=== PATIENT | female | born 1980 | race Caucasian/White ===

== ENCOUNTER 2023-12-27 01:49 | Day surgery (SDC) | payer BC, SELFPAY ==
[2023-12-17 09:00] VITALS: BMI 37.4
--- NOTE | 2023-12-17 09:05 | PC.NURSE ---
Report to the Outpatient Waiting Room, entrance under the green pavilion located off [facility], at time 1330 on date 12/27/23. Planned Procedure Time: 1530. Time changes happen often and if your time is changed the preop area will call you the afternoon before. - You and your visitor will be asked to self-screen and do not enter if you have any COVID symptoms. - A mask is optional within the hospital at this time. Patients may have clear liquids (water, carbonated beverages, clear teas, apple juice) until 3 hours prior to surgery with a maximum of 20 ounces. - No food from midnight until time of surgery Take the following medications with a SIP of water the morning of surgery: LEVOTHYROXINE DO NOT STOP ANY OF YOUR OTHER PRESCRIPTION MEDICATIONS PRIOR TO SURGERY ?EXCEPT THE FOLLOWING Medications to discontinue per physician: N/A Date to take last dose: N/A Please no make-up, nail malawian, hairspray, perfume, deodorant, or body powder the day of surgery. No jewelry (including any body piercings) or valuables the day of surgery, leave them at home. Please take a shower or bath the night before, or the morning of, surgery with an antibacterial soap. Wear comfortable, loose fitting clothing. - Jewelry must be removed prior to entering the operating room. Rings and piercings that are not removed may be cut off. - The hospital will not accept responsibility for valuables. - Please leave all valuables, including medications, at home the day of surgery. If you are going home after surgery, a licensed experienced truck driver must drive you home. - NO public transportation without another adult if you receive anesthesia. - We recommend that an adult stay with you for 24 hours following discharge. - We also recommend that you do not drive, make important decision, drink alcoholic beverages, or take any drugs that were not prescribed by your health care provider for at least 24 hours after your discharge time. Follow any additional instructions given to you from your surgeon. If you or anyone in your household have experienced Covid symptoms in the past week, please notify your surgeon or the nurse liaison at the phone number below for possible testing. Telephone instructions given to PT - RAFAEL GRAY and asked if any additional questions and then verbalized understanding. Patient advised to call surgeon office or pre surgery nurse liaison [phone] if any additional questions.
--- NOTE | 2023-12-27 09:21 | WPDHPUPDATE1 ---
History and Physical Update Update Date/Time: 12/27/23 09:21 History and Physical has been reviewed, including an updated exam of the patient. There are NO changes in the patient's condition. Risks, benefits, and alternatives have been discussed and questions answered. Patient agrees to proceed with procedure.
--- NOTE | 2023-12-27 09:21 | PM.HPGS ---
History of Present Illness History of Present Illness Consent: Risks, benefits, and alternatives have been discussed and questions answered. Patient agrees to proceed with procedure. Chief complaint: Menorrhagia Narrative: Bea Avitia is a 43 year old female with the onset of continues vaginal bleeding in August of 2023. The patient stopped her cyclic progesterone in June of 2023. In addition the patient stopped her Liothyronine also in June of 2023. The patient had blood work done showing a low free T3 and elevated TSH and was otherwise normal. It was recommended to undergo D&C hysteroscopy. Risks of infection, bleeding, perforation, and possible pathology are discussed. Patient voiced understanding and agrees to proceed. Review of Systems Review of Systems: not repeated day of surgery; patient states no changes in status PMFSH Past Medical History Medical History (Updated 12/27/23 @ 09:27 by Claudia Ozuna MD) Hypothyroid Surgical History Surgical History (Updated 12/27/23 @ 09:25 by Claudia Ozuna MD) History of section, low transverse x2 History of D&C 2015 spontaneous Family History Family History (Updated 12/27/23 @ 09:25 by Claudia Ozuna MD) Mother Endometrial carcinoma Social History Social History Years smoked: 20 Smoking status: Current every day smoker Tobacco type: cigarettes Alcohol intake: current Alcohol use details: VERY RARE Substance use: never Substance use type: does not use Living arrangements: with family Spiritual care concerns: No Meds Home Medications and Allergies Home Medications Medication Instructions Recorded Confirmed Type dupilumab 300 mg/2 mL subcutaneous 300 mg subcut WEEKLY 12/17/23 12/17/23 History syringe (Dupixent) levothyroxine 125 mcg tablet 125 mcg PO DAILY 12/17/23 12/17/23 History Allergies Allergy/AdvReac Type Severity Reaction Status Date / Time No Known Allergies Allergy Unverified 12/17/23 08:59 Exam Const: General: obese (BMI of 36) Orientation/consciousness: patient oriented x3 Resp: Effort & Inspection: normal respiratory effort : External Female Exam: normal external appearance Speculum Exam - Vagina: normal appearance of the vagina and normal vaginal discharge Speculum Exam - Cervix: normal appearance of the cervix Bimanual exam- vagina & uterus: uterine size normal and consistency normal Bimanual Exam- Adnexa, other: normal adnexae and No adnexal tenderness Neuro: General: patient oriented x3 Assessment and Plan Assessment and plan (1) Menorrhagia: Code(s): N92.0 - Excessive and frequent menstruation with regular cycle Status: Acute Assessment and Plan: plan to proceed with D&C hysteroscopy
[2023-12-27 12:56] VITALS: BP 136/75; PULSE 83; RESP 20; TEMP 36.9; O2SAT 97
[2023-12-27] MEDS: ACETAMINOPHEN 500 MG TABLET 1000 MG PO (13:27)
--- NOTE | 2023-12-27 13:29 | WPDANESEPPF ---
Anes - Initial Pre Proc Eval Procedure: Operation Date: 12/27/23 15:30 Proposed Procedures p Hysteroscopy Dilation and Curettage - Claudia Ozuna MD Date/Time: 12/27/23 13:29 Surgeon: Claudia Ozuna MD Pre Op Diagnosis: Menorrhagia Patient Data Age: 43 Gender: F Height: 1.65 m Weight: 102.1 kg Allergies Allergy/AdvReac Type Severity Reaction Status Date / Time No Known Allergies Allergy Unverified 12/27/23 13:25 Home Medications Medication Instructions Recorded Confirmed Type dupilumab 300 mg/2 mL subcutaneous 300 mg subcut WEEKLY 12/17/23 12/27/23 History syringe (Dupixent) levothyroxine 125 mcg tablet 125 mcg PO DAILY 12/17/23 12/27/23 History Patient hx anesthesia problems: none Family hx anesthesia problems: none Results Review: All pre-operative results and documents have been reviewed as part of the pre-operative evaluation. [facility] Past Medical History Medical History (Updated 12/27/23 @ 13:30 by Silvano Monge MD) Eczema Hypothyroid Obesity Surgical History Surgical History History of section, low transverse x2 History of D&C 2015 spontaneous Family History Family History Mother Endometrial carcinoma Social History Social History Years smoked: 20 Smoking status: Current every day smoker Tobacco type: cigarettes Alcohol intake: current Alcohol use details: VERY RARE Substance use: never Substance use type: does not use Living arrangements: with family Spiritual care concerns: No Anes - Eval Final PreProcedure Day of Procedure 12/27/23 13:29 Patient weight: obese Heart: regular rate and rhythm Lungs: clear to auscultation Airway: Mallampati scale class II Neurological: alert and oriented Last oral intake: >/= 8 hours ASA classification: III Emergent: no Anesthetic plan: proceed Anesthesia type and monitoring: general GIVS and standard monitoring Results Review: All pre-operative results and documents have been reviewed as part of the pre-operative evaluation. Informed Consent: The patient's anesthetic plan and its attendant risks and benefits were discussed with the patient/family/POA. Questions were solicited and answers provided to the satisfaction of the patient/family/POA.
[2023-12-27] MEDS: LACTATED RINGERS 1,000 ML 30 ML IV CONT ×2 (13:40→14:50)
[2023-12-27] MEDS: KETOROLAC 30 MG/ML VIAL (*BKC) IV PUSH (14:17)
[2023-12-27 14:33] VITALS: BP 130/92; PULSE 97; RESP 16; O2SAT 93
--- NOTE | 2023-12-27 14:33 | W.PM.PROC2 ---
Procedure Note - Detailed Date of Procedure 12/27/23 Pre-op Diagnosis Menorrhagia Post-op Diagnosis Same Procedure Performed D&C hysteroscopy Surgeon Claudia Ozuna MD Anesthesia MAC Findings uterus sounds to 10cm and appears grossly normal Description of Procedure The patient is taken to the operating room and placed under anesthesia in the dorsal lithotomy position. She was prepped and draped in usual sterile fashion. [place] speculum was placed in the vagina and the cervix is grasped on the anterior lip with a tenaculum. The uterus is sounded to 10cm. The hysteroscope was placed and with no abnormalities noted the hysteroscope was removed. The OO sharp curette was used to curette the endometrium until a good uterine cry was noted in all areas. All instruments are removed. Sponge, needle, and instrument counts are correct per the OR staff. The patient was awakened from anesthesia and taken to recovery in stable condition. Estimated Blood Loss 5 Drains No Packing No Pathology Yes ( Endometrial curettings) Complications No immediate complications Condition Stable Disposition PACU
[2023-12-27 15:00] VITALS: BP 147/80; PULSE 70; RESP 18; O2SAT 98
[2023-12-27 15:20] VITALS: BP 128/73; PULSE 663; RESP 18
== END 2023-12-27 15:39 | disposition home or self-care (01) ==
PROVIDERS: PCP Family Medicine; Visit Provider Obstetrics & Gynecology Gynecology
PROC: 0U5B8ZZ Destruction of Endometrium, Via Natural or Artificial Opening Endoscopic (ICD-10-PCS; CPT 58563; principal; 2023-12-27 15:30)
DX: N92.0 Excessive and frequent menstruation with regular cycle (principal); N85.8 Other specified noninflammatory disorders of uterus; E03.9 Hypothyroidism, unspecified; F17.210 Nicotine dependence, cigarettes, uncomplicated; E66.9 Obesity, unspecified; Z68.36 Body mass index [BMI] 36.0-36.9, adult; Z80.49 Family history of malignant neoplasm of other genital organs
CPT/HCPCS: 58558; 88305; A9270; J1100; J1885; J2250; J2405; J2704; J3010; J7120